=== PATIENT | female | born 1935 | race Caucasian/White ===

== ENCOUNTER → 2016-10-13 | Outpatient (CLI) | payer OTHER, MEDICARE ==
[~2016-10-13] MED LIST: ASTNS; CALC-358 PO; CETI10TA84 PO; COQ10100 PO; EST5 PO; FLAX1CAP11 PO; GLUCTAB7 PO; MEDR5TAB PO; METH1CAP PO; MULT-506 PO; OMEG10007 PO; ST J PO; ST J1CAP PO; TRAM-10 PO; TRIA3AER NAE; VALE250C2 PO
--- NOTE | 2016-10-13 16:18 | DIAGNOSTIC IMAGING REPORT ---
LUMBAR SPINE MRI HISTORY: Back pain Scoliosis, lumbar STENOSIS TECHNIQUE: Multiplanar multisequence MRI of the lumbar spine was performed without the use of contrast. COMPARISON: None. FINDINGS: For the purpose of the report the L5-S1 disc space will be located on axial image 27 of 30. Significant degenerative disc changes throughout. Moderate scoliosis. No evidence for bone marrow replacing process. L1-L2: Minimal broad-based disc bulge. Minimal impact anterior thecal sac. Neuroforamina are patent bilaterally. L2-L3: Minimal broad-based disc bulge. Degenerative change posterior elements L3-L4: Mild broad-based disc bulge. Mild osteophytic narrowing left neural foramina L4-L5: Minimal broad-based disc bulge. L5-S1: Mild broad-based disc bulge. Minimal impact anterior thecal sac. Minimal osteophytic narrowing right neuroforamina. IMPRESSION: Significant degenerative disc change. Multiple minimal to very mild disc bulges. No major spinal stenosis or disc herniation Electronically signed by: Maxwell Savage M.D. 10/13/2016 4:17 PM Dictated Date/Time: 10/13/2016 4:06 PM
== END | disposition home or self-care (01) ==
LOC: C.MRIBC 14:46
PROVIDERS: ATTEND Internal Medicine
DX: M41.9 Scoliosis, unspecified (principal); M48.06 Spinal stenosis, lumbar region

== ENCOUNTER → 2017-03-22 | Outpatient (CLI) | payer OTHER, MEDICARE ==
[~2017-03-22] MED LIST changes: -TRAM-10 PO
--- NOTE | 2017-03-22 15:58 | MAMMOGRAPHY REPORT ---
BILATERAL DIGITAL SCREENING MAMMOGRAM WITH CAD: 03/22/2017 CLINICAL HISTORY: Routine screening. Patient has no complaints. TECHNIQUE: Bilateral CC, MLO and repeat right MLO views were obtained. Current study was also evalua tawanda with a Computer Aided Detection (CAD) system. COMPARISON: Comparison is made to exams dated: 03/09/2016 mammogram, 03/06/2015 mammogram, 02/04/2014 mamm ogram, 02/01/2013 mammogram, 02/01/2012 mammogram, and 01/27/2011 mammogram - [facility] er. BREAST COMPOSITION: There are scattered areas of fibroglandular density in both breasts. FINDINGS: There is a stable asymmetry in the slightly medial posterior left breast on the CC view, w hich appears similar dating back to at least 12/17/2008, therefore likely benign. No suspicious mass, architectural distortion or cluster of microcalcifications is seen. IMPRESSION: ACR BI-RADS CATEGORY 2: BENIGN There is no mammographic evidence of malignancy. A 1 year screening mammogram is recommended. The pa tient will receive written notification of the results. Approximately 10% of breast cancers are not detected with mammography. A negative mammographic report should not delay biopsy if a clinically suggestive mass is present. Debby Norman M.D. ay/:03/22/2017 14:38:01 Trap Puller: Linda KAY(Sridhar)(Nohelia)(BD), [facility] letter sent: Normal 1/2 BI-RADS Code: ACR BI-RADS Category 2: Benign
== END | disposition home or self-care (01) ==
LOC: C.MAMM 14:08
PROVIDERS: ATTEND Obstetrics & Gynecology
DX: Z12.31 Encounter for screening mammogram for malignant neoplasm of breast (principal)

== ENCOUNTER → 2017-11-16 | Outpatient (CLI) | payer OTHER, MEDICARE | END | disposition home or self-care (01) | LOC: C.LABBC 09:37 | PROVIDERS: ATTEND Physician Assistant | DX: R14.3 Flatulence (principal) ==

== ENCOUNTER → 2017-12-20 | Day surgery (SDC) | payer OTHER, MEDICARE ==
[~2017-12-20] VITALS: Ht 152.4 cm; Wt 58.5 kg
[~2017-12-20] MED LIST changes: +LACTULOSE SYRUP 30 GM/45 ML UDP PO PRN
[2017-12-20 08:36] VITALS: BP 131/80; PULSE 65; TEMP 36.4; O2SAT 100; Ht 152.4 cm; Wt 58.5 kg
[2017-12-20 12:01] VITALS: BP 132/53; PULSE 56; TEMP 36.4; O2SAT 100
--- NOTE | 2017-12-22 09:12 | Procedure Note ---
Breath Hydrogen Test Interpretation Assessment: Breath test is negative for Small Intestinal Bacterial Overgrowth. Plan: Return to ordering provider for further workup of Flatulence.
== END | disposition home or self-care (01) ==
LOC: C.MTU 08:14
PROVIDERS: ATTEND Internal Medicine
DX: R14.3 Flatulence (principal)

== ENCOUNTER → 2018-03-24 | Outpatient (CLI) | payer OTHER, MEDICARE ==
[~2018-03-24] MED LIST changes: -LACTULOSE SYRUP 30 GM/45 ML UDP PO PRN
--- NOTE | 2018-03-27 07:44 | MAMMOGRAPHY REPORT ---
BILATERAL DIGITAL SCREENING MAMMOGRAM TOMOSYNTHESIS WITH CAD: 03/24/2018 CLINICAL HISTORY: Routine screening. Patient has no complaints. TECHNIQUE: The study was acquired using full field digital technology and interpreted from soft copy. Breast tomosynthesis in addition to standard 2D mammography was performed. Current study was also ev aluated with a Computer Aided Detection (CAD) system. COMPARISON: Comparison is made to exams dated: 03/22/2017 mammogram, 03/09/2016 mammogram, 03/06/2015 chris mogram, 02/04/2014 mammogram, 02/01/2013 mammogram, and 02/01/2012 mammogram - [facility] er. BREAST COMPOSITION: There are scattered areas of fibroglandular density in both breasts. FINDINGS: No suspicious masses, calcifications, or areas of architectural distortion are noted in either breast . There has been no significant interval change compared to prior exams. IMPRESSION: ACR BI-RADS CATEGORY 1: NEGATIVE There is no mammographic evidence of malignancy. A 1 year screening mammogram is recommended.( [id number]) The patient will receive written notification of the results. Some breast cancers are not detected with mammography. A negative mammographic report should not rush y biopsy if a clinically suggestive mass is present. Marie Amador M.D. ah/:03/24/2018 12:11:10 Microscopist: Brandie Domingo [facility] letter sent: Normal 1/2 BI-RADS Code: ACR BI-RADS Category 1: Negative
== END | disposition home or self-care (01) ==
LOC: C.MAMM 10:57
PROVIDERS: ATTEND Obstetrics & Gynecology
DX: Z12.31 Encounter for screening mammogram for malignant neoplasm of breast (principal)

== ENCOUNTER → 2018-04-25 | Outpatient (CLI) | payer OTHER, MEDICARE ==
[2018-04-25 14:35] LABS: ALBUMIN 3.2 gm/dl (3.4-5.0); ALKALINE PHOSPHATASE 56 U/L (45-117); ALT/SGPT 30 U/L (12-78); AST/SGOT 42 U/L (15-37); BLOOD UREA NITROGEN 22 mg/dl (7-18); CARBON DIOXIDE 27 mmol/L (21-32); CHOLESTEROL 185 mg/dl (0-200); CREATININE 0.86 mg/dl (0.60-1.20); GLUCOSE 79 mg/dl (70-99); LDL CHOLESTEROL CALCULATED 83 mg/dl; POTASSIUM 4.4 mmol/L (3.5-5.1); SODIUM 135 mmol/L (136-145); TOTAL PROTEIN 7.1 gm/dl (6.4-8.2)
[2018-04-25 19:49] LABS: HEMATOCRIT 39.5 % (37-47); HEMOGLOBIN 13.1 g/dL (12.0-16.0); MEAN CORPUSCULAR HEMOGLOBIN 33.2 pg (25-34); MEAN CORPUSCULAR HGB CONC 33.2 g/dl (32-36); MEAN PLATELET VOLUME 11.8 fL (7.4-10.4); PLATELET COUNT 140 K/uL (130-400); RED CELL DISTRIBUTION WIDTH CV 13.4 % (11.5-14.5); RED CELL DISTRIBUTION WIDTH SD 48.8 fL (36.4-46.3); WHITE BLOOD COUNT 5.57 K/uL (4.8-10.8)
== END | disposition home or self-care (01) ==
LOC: C.LABBC 10:13
PROVIDERS: ATTEND Internal Medicine
DX: E03.9 Hypothyroidism, unspecified (principal); M48.061 Spinal stenosis, lumbar region without neurogenic claudication; Z86.39 Personal history of other endocrine, nutritional and metabolic disease